=== PATIENT | female | born 1975 | race African-American/Black ===

== ENCOUNTER 2023-09-14 17:00 | Emergency (ER) | payer BC, SELFPAY ==
--- NOTE | ~2023-09-14 | XR_ITS ---
XR sacrum coccyx min 2V DATE: 09/14/2023 17:29 INDICATION: Fall. Tailbone pain. TECHNIQUE: AP and lateral views COMPARISON: None FINDINGS: No sacral or coccygeal fractures evident. Normal alignment at included L4-5 and L5-S1 levels, with relative preservation of the disc spaces at these 2 levels. Normal alignment at the pubic symphysis and sacroiliac joints. IMPRESSION: No sacral or coccygeal fracture is noted Reviewed, dictated and finalized at location B.
--- NOTE | ~2023-09-14 | XR_ITS ---
XR lumbar spine 2-3V DATE: 09/14/2023 17:29 INDICATION: Fell on buttock. Lumbar back pain. TECHNIQUE: AP, lateral, cone-down lateral lumbosacral views COMPARISON: None FINDINGS: There is mild dextroscoliosis. Included lower thoracic and lumbar pedicles are intact. No fracture or bone destruction is evident. N o spondylolisthesis. Lumbar level secondary spaces appear well preserved. The sacroiliac joints are i ntact. Surgical clips, right upper quadrant, likely due to cholecystectomy. IMPRESSION: Mild dextroscoliosis; no evidence of fracture Reviewed, dictated and finalized at location B.
[2023-09-14 17:10] VITALS: BP 135/95; PULSE 89; RESP 16; TEMP 36.4; O2SAT 100
--- NOTE | 2023-09-14 17:11 | ED.FALL ---
HPI - Fall General Chief Complaint: Fall Stated Complaint: FALL/TAILBONE INJURY Time Seen by Provider: 09/14/23 17:18 Source: patient Mode of arrival: ambulatory Limitations: no limitations History of Present Illness HPI Narrative: Melvina is a 48-year-old female patient presenting to the clinic today with complaints of ground level fall/tailbone/low back pain. She reports she fell 1 week ago when assisting her mother who was ill. States she fell on her left buttock/tailbone. Is having pain to the left buttocks and over the tailbone with pain shooting up into the lumbar spine. Is having pain sitting, stretching, and walking. Related Data Home Medications Medication Instructions Recorded Confirmed amlodipine 5 mg tablet 5 mg PO DAILY 09/14/23 09/14/23 hydrochlorothiazide 25 mg tablet 25 mg PO DAILY 09/14/23 09/14/23 metoprolol succinate 50 mg 50 mg PO DAILY 09/14/23 09/14/23 tablet,extended release 24 hr (Toprol XL) promethazine 25 mg tablet 25 mg PO Q6H PRN Nausea 09/14/23 09/14/23 ubrogepant 50 mg tablet (Ubrelvy) 50 mg PO DAILY 09/14/23 09/14/23 Allergies Allergy/AdvReac Type Severity Reaction Status Date / Time ibuprofen Allergy Hypertensio Verified 09/14/23 17:13 n levofloxacin [From Levaquin] Allergy Unknown Verified 09/14/23 17:13 Review of Systems Review of Systems: Pertinent positives per HPI. Patient denies any fever, chills, rash, headache, visual changes, dizziness, cough, runny nose, sore throat, shortness of breath, chest pain, palpitations, nausea, vomiting, diarrhea, constipation, abdominal pain, or any urinary issues. [facility] Comments At the time of my signature, I reviewed and agree with the nursing past medical, surgical, social, and family history. There is no relevant family history pertinent to the patient complaint. Exam Narrative: General: Well-developed, overweight, in no apparent distress Head: Normocephalic, atraumatic. Cardio: Regular rate and rhythm, s1 and s2 normal, no murmur appreciated. Resp: Clear to auscultation bilaterally, no rhonchi, rales, wheezing or rubs. Musculoskeletal: No deformity, no bruising or swelling noted, tenderness to palpation over the left buttocks, coccyx, sacrum, and lumbar spine, slow to change positions due to pain, muscle strength strong and equal, peripheral pulse strong, no edema, no cyanosis, normal gait and station Course Course Emergency Course: Portions of this record may have been created with voice recognition software. Level of Care: Express Care Visit Vital Signs Vital signs: Vital signs reviewed MDM - Fall MDM Narrative Medical decision making narrative: At the time of visit patient is resting comfortably on the exam table. Patient appears to be nontoxic. Diagnostics: X-ray of the lumbar spine, sacrum, and coccyx are negative for any sign of fracture or malalignment. Plan: I suspect patient has coccyx pain/contusion/low back pain. Will send in prescription for baclofen and tramadol for pain as patient cannot take NSAIDs due to elevation of her blood pressure. Supportive measures were discussed with the patient and they voiced understanding discharge instructions and agrees to treatment plan. Return precautions reviewed Differential Diagnosis Differential diagnosis: Likely other (Fall, tailbone fracture, lumbar compression fracture, contusion, soft tissue injury, muscle strain) Imaging Data Radiologist's impression: ITS Impressions Lumbar Spine X-Ray 09/14/23 17:35 IMPRESSION: Mild dextroscoliosis; no evidence of fracture Sacrum and Coccyx X-Ray 09/14/23 17:37 IMPRESSION: No sacral or coccygeal fracture is noted Discharge Plan Discharge Clinical Impression: Coccyx contusion Qualifiers: Encounter type: initial encounter Qualified Code(s): S30.0XXA - Contusion of lower back and pelvis, initial encounter Low back pain Qualifiers: Chronicity: acute Back pain laterality: lef
== END 2023-09-14 17:57 | disposition home or self-care (01) ==
PROVIDERS: Emergency Provider Nurse Practitioner Family
DX: S30.0XXA Contusion of lower back and pelvis, initial encounter (principal); W19.XXXA Unspecified fall, initial encounter; M54.50 Low back pain, unspecified; I10 Essential (primary) hypertension
CPT/HCPCS: 72100; 72220; 99213; G0463